=== PATIENT | male | born 1955 | race Hispanic/Latino ===

== ENCOUNTER 2018-09-25 18:21 | Emergency (ER) | payer BC ==
[2018-09-25 19:16] VITALS: BMI 21.2
[2018-09-25 19:19] VITALS: RESP 18; O2SAT 96
[2018-09-25] MEDS ORDERED: TDAP Vaccine 0.5 mL Syr IM ONE (20:34)
[2018-09-25] MEDS ORDERED: Lidocaine 1% Inj (20ml) IJ STA (20:35)
[2018-09-25] MEDS ORDERED: Lidocaine 1% 5ml Abboject ONE (20:46)
--- NOTE | 2018-09-25 22:27 | ED PDOC ---
Arrival/HPI <Armando Deng - Last Filed: 09/25/18 22:39> - General Historian: Patient - History of Present Illness Narrative History of Present Illness (Text): 09/25/18 20:25 62 year old male, with no significant past medical history, presents to the emergency department complaining of sustaining of laceration to the left wrist after it got caught on a fence. Patient denies any numbness, decrease ROM, or any other complaints/injuries. PMD: Dr. Stephanie Valerio Symptom Onset: Sudden Symptom Course: Unchanged Activities at Onset: Light Context: Street <Simin Haley PA-C - Last Filed: 09/25/18 23:44> - General Chief Complaint: Abnormal Skin Integrity Time Seen by Provider: 09/25/18 20:12 Past Medical History - Provider Review Nursing Documentation Reviewed: Yes - Infectious Disease Hx of Infectious Diseases: None - Tetanus Immunization Tetanus Immunization: Unknown - Cardiac Hx Hypertension: Yes - Pulmonary Hx Respiratory Disorders: No - Neurological Hx Neurological Disorder: No - HEENT Hx HEENT Disorder: No - Renal Hx Renal Disorder: No - Endocrine/Metabolic Hx Endocrine Disorders: No - Hematological/Oncological Hx Blood Disorders: No - Integumentary Hx Dermatological Disorder: No - Musculoskeletal/Rheumatological Hx Musculoskeletal Disorders: No - Gastrointestinal Hx Gastrointestinal Disorders: No - Genitourinary/Gynecological Other/Comment: BPH - Psychiatric Hx Psychophysiologic Disorder: No Hx Depression: No Hx Emotional Abuse: No Hx Physical Abuse: No Hx Substance Use: No - Past Surgical History Past Surgical History: No Previous - Suicidal Assessment Feels Threatened In Home Enviroment: No <Simin Haley PA-C - Last Filed: 09/25/18 23:44> Family/Social History - Physician Review Nursing Documentation Reviewed: Yes Family/Social History: No Known Family HX Smoking Status: Never Smoked Hx Alcohol Use: No Hx Substance Use: No Hx Substance Use Treatment: No <Simin Haley PA-C - Last Filed: 09/25/18 23:44> Allergies/Home Meds <Armando Deng - Last Filed: 09/25/18 22:39> <Simin Haley PA-C - Last Filed: 09/25/18 23:44> Allergies/Adverse Reactions: Allergies No Known Allergies Allergy (Verified 09/07/14 21:57) Home Medications: Home Meds Medication Instructions Recorded Confirmed Amlodipine Besylate/Benazepr 1 cap PO DAILY 09/07/14 09/07/14 [Lotrel 5 mg-20 mg] Ezetimibe/Simvastatin [Vytorin 1 tab PO MWF 09/07/14 09/07/14 10-10 mg Tablet] Tamsulosin [Flomax] 0.4 mg PO DAILY 09/07/14 09/07/14 Review of Systems - Physician Review All systems were reviewed & negative as marked: Yes - Review of Systems Musculoskeletal: absent: Other (decrease ROM) Skin: Laceration (to the left wrist) Neurological: absent: Other (numbness ) <Simin Haley PA-C - Last Filed: 09/25/18 23:44> Physical Exam Vital Signs Temp Pulse Resp BP Pulse Ox 09/25/18 19:19 98.3 F 92 H 18 152/71 H 96 <Armando Deng - Last Filed: 09/25/18 22:39> Vital Signs Reviewed: Yes Vital Signs Temp Pulse Resp BP Pulse Ox 09/25/18 19:19 98.3 F 92 H 18 152/71 H 96 Temperature: Afebrile Blood Pressure: Hypertensive Pulse: Regular Respiratory Rate: Normal Appearance: Positive for: Well-Appearing, Non-Toxic, Comfortable Pain Distress: None Mental Status: Positive for: Alert and Oriented X 3 - Systems Exam Upper Extremity: Present: Normal ROM, NORMAL PULSES, Neurovascularly Intact, Capillary Refill < 2s, Norm 2-Pt Discrimination, Other (5cm laceration to the lateral aspect of L wrist). No: Cyanosis, Edema, Tenderness, Swelling, Erythema, Temperature Abnormalties Neurological: Present: GCS=15, CN II-XII Intact, Speech Normal, Motor Func Grossly Intact, Normal Sensory Function Skin: Present: Warm, Dry, Normal Color. No: Rashes Psychiatric: Present: Alert, Oriented x 3, Normal Insight, Normal Concentration <Simin Haley PA-C - Last Filed: 09/25/18 23:44> Medical Decision Making - Medication Orders Current Medication Orders: Discontinued Medications Lidocaine HCl (Lidocaine 1% (20ml)) 5 ml IJ STAT STA Stop: 09/25/18 20:36 Last Admin: 09/25/18 21:41 Dose: 5 ml Comments: given to dr. salgado. Tetanus/Reduced Diphtheria/Acell Pertussis (Boostrix Vaccine Inj) 0.5 ml IM .ONCE ONE Stop: 09/25/18 20:35 Last Admin: 09/25/18 20:44 Dose: 0.5 ml Immunization Registry Document 09/25/18 20:44 RG (Rec: 09/25/18 20:45 RG [id number]) [facility]-Date provided 09/25/18 <Armando Deng - Last Filed: 09/25/18 22:39> ED Course and Treatment: 09/25/18 22:27 Case d/w Dr. Salgado, who will see and evaluate the patient. Laceration repair performed by Dr. Salgado at the bedside. Patient tolerated the procedure well. Advised to follow up with Dr. Salgado w/in 1 week for re-evaluation. Advised to take medication as prescribed. Return to the emergency room at any time for any new or worsening symptoms. Patient states he fully agrees with and understands discharge instructions. States that he agrees with the plan and disposition. Verbalized and repeated discharge instructions and plan. I have given the patient opportunity to ask any additional questions. - Medication Orders Current Medication Orders: Discontinued Medications Lidocaine HCl (Lidocaine 1% (20ml)) 5 ml IJ STAT STA Stop: 09/25/18 20:36 Last Admin: 09/25/18 21:41 Dose: 5 ml Comments: given to dr. salgado. Tetanus/Reduced Diphtheria/Acell Pertussis (Boostrix Vaccine Inj) 0.5 ml IM .ONCE ONE Stop: 09/25/18 20:35 Last Admin: 09/25/18 20:44 Dose: 0.5 ml Immunization Registry Document 09/25/18 20:44 RG (Rec: 09/25/18 20:45 RG [id number]) [facility]-Date provided 09/25/18 <Simin Haley PA-C - Last Filed: 09/25/18 23:44> - PA / FINAL APPLICATION REVIEWER / Resident Statement MADDY has reviewed & agrees with the documentation as recorded. MADDY has examined the patient and agrees with the treatment plan. <Armando Deng - Last Filed: 09/25/18 22:39> - PA / FINAL APPLICATION REVIEWER / Resident Statement MADDY has reviewed & agrees with the documentation as recorded. - Scribe Statement The provider has reviewed the documentation as recorded by the Rebecca Gray Provider Rebecca Attestation: All medical record entries made by the Murielibrain were at my direction and personally dictated by me. I have reviewed the chart and agree that the record accurately reflects my personal performance of the history, physical exam, medical decision making, and the department course for this patient. I have also personally directed, reviewed, and agree with the discharge instructions and disposition. <Simin Haley PA-C - Last Filed: 09/25/18 23:44> Disposition/Present on Arrival <Armando Deng - Last Filed: 09/25/18 22:39> - Present on Arrival Any Indicators Present on Arrival: No History of DVT/PE: No History of Uncontrolled Diabetes: No Urinary Catheter: No History of Decub. Ulcer: No History Surgical Site Infection Following: None - Disposition Have Diagnosis and Disposition been Completed?: Yes Disposition Time: 22:15 Patient Plan: Discharge <Simin Haley PA-C - Last Filed: 09/25/18 23:44> - Disposition Diagnosis: Wrist laceration Disposition: HOME/ ROUTINE Patient Problems: Current Active Problems Problem Status Onset Wrist laceration Acute Condition: STABLE Discharge Instructions (ExitCare): Wound Care (DC), Laceration Repair With Stitches (DC) Additional Instructions: Thank you for letting us take care of you today. You were treated for wrist laceration. The emergency medical care you received today was directed at your acute symptoms. If you were prescribed any medication, please fill it and take as directed. It may take several days for your symptoms to resolve. Return to the Emergency Department if your symptoms worsen, do not improve, or if you have any other problems. Please contact Dr. Salgado in 2-4 days for re-evaluation and follow up, have sutures removed after 1 week. Bring any paperwork you were given at discharge with you along with any medications you are taking to your follow up visit. Our treatment cannot replace ongoing medical care by a primary care provider (PCP) outside of the emergency department. Thank you for allowing the [facility] team to be part of your care today. Prescriptions: Cephalexin [Keflex] 500 mg PO Q6 #28 capsule Referrals: Brian Valerio MD [Primary Care Provider] - Follow up with primary Damian,Tatiana Paez MD [Staff Provider] - Follow up with primary Forms: [employer] (Palestinian), WORK NOTE
[2018-09-26 05:20] VITALS: BP 149/66; PULSE 89; TEMP 98.2
--- NOTE | 2018-10-05 23:50 | CON ---
DATE: 09/25/2018 EMERGENCY ROOM CONSULTATION SURGEON: Tatiana Salgado MD HISTORY OF PRESENT ILLNESS: This is a 62-year-old right-hand dominant healthy male who cut his left wrist on a metal pins while at home. He presented to the emergency room with a 3-cm laceration on his distal radial left wrist. There was concern for tendon and nerve damage in his left wrist, so I was consulted as the hand surgeon on-call, I came in to evaluate and treat the patient. PHYSICAL EXAMINATION: EXTREMITIES: The patient's left dorsal wrist over the radial aspect, there was a 3-cm laceration extending over the dorsal aspect as well as the flexor volar aspect of the left distal wrist. The patient did not have any paraesthesia. He did not have a Tinel sign. He has some limitations of flexion and extending, but it could have been secondary to pain and swelling. He had good capillary refill. The bones were nontender. The other thing I explained to the patient in the emergency room. I would explore the wound to see if there was any underlying nerve or tendon damage and if , repair upon the ER, we will do it and would require splinting and immobilization and I told him he should also come to the office to follow with them for further evaluation and if there is any injury, should be fixed in a timely manner. The patient understood this and wish to proceed. I will know dictate a separate operative report. Tatiana Salgado MD
--- NOTE | 2018-10-06 03:04 | OP ---
PROCEDURE DATE: 09/25/2018 SURGEON: Tatiana Salgado MD PREOPERATIVE DIAGNOSES: 1. A 3 cm left distal wrist laceration. 2. Possible left wrist extension tendon/abductor pollicis brevis tendon laceration. POSTOPERATIVE DIAGNOSES: 1. A 3 cm left distal wrist laceration. 2. Possible left wrist extension tendon/abductor pollicis brevis tendon laceration. PROCEDURES PERFORMED: As follows: 1. Exploration of penetrating wound of left wrist. 2. Complex repair of 3 cm left wrist wound laceration. ANESTHESIA: Local. INDICATION FOR THE PROCEDURE: As follows: Please refer to my separately dictated ER consultation for history and physical. DESCRIPTION OF PROCEDURE: As follows: 1% lidocaine, 1:100,000 epinephrine mixed with 0.5% Marcaine was used in the left wrist open wound. After allowing sufficient time for the anesthetic to take effect, the wound was thoroughly irrigated with normal saline and diluted with Betadine. The area was prepped and draped in usual clean and sterile manner. I started the operation by making incision larger with a scissor. I explored the underlying extensor pollicis longus tendon, the flexor longus tendon as well as the abductor pollicis brevis tendon. They were intact. I also found the radial nerve and that was intact. It did not appear to be any injury injuries upon exploration. I then debrided the irregular skin edges, undermined it to take the tension off the wound. I used a 4-0 Vicryl to line up and approximate the subcutaneous tissue and deep dermis in interrupted fashion. I then closed the 3 cm epidermis with a running 4-0 Prolene suture. I placed Xeroform dry sterile dressing, Dalton wrap. The patient tolerated this procedure well and eventually discharged home from the emergency room in stable condition. Postop wound care, limitation of physical activities, the fact there will be a scar, the prognosis of which is unknown, the need to take oral antibiotics and to follow up with me for followup exam to reassess his nerves and tendon in the office, were discussed with the patient and all questions were answered. Tatiana Salgado MD
== END 2018-09-25 22:40 | disposition home or self-care (01) ==
LOC: ED 18:21
DX: S61.512A Laceration without foreign body of left wrist, initial encounter (principal); W23.0XXA Caught, crushed, jammed, or pinched between moving objects, initial encounter; I10 Essential (primary) hypertension